=== PATIENT | female | born 1970 | race Caucasian/White ===

== ENCOUNTER → 2016-08-25 16:54 | Outpatient (CLI) | payer BC | END | disposition home or self-care (01) | LOC: D.MAMMO 08:00 → D.US 08:30 → D.MAMMO 11:30 | DX: R92.8 Other abnormal and inconclusive findings on diagnostic imaging of breast (principal) ==

== ENCOUNTER 2017-08-27 08:00 | Outpatient (CLI) | payer BC | END 2017-08-27 09:00 | disposition home or self-care (01) | LOC: D.MAMMO 08:00 | DX: R92.8 Other abnormal and inconclusive findings on diagnostic imaging of breast (principal) ==

== ENCOUNTER 2018-01-23 19:00 | Outpatient (CLI) | payer BC | END 2018-01-23 23:59 | disposition home or self-care (01) | LOC: D.MAMMO 19:00 | DX: N64.9 Disorder of breast, unspecified (principal) ==

== ENCOUNTER → 2018-02-01 10:53 | Outpatient (CLI) | payer BC | END | disposition home or self-care (01) | LOC: D.US 10:53 | DX: N63.12 Unspecified lump in the right breast, upper inner quadrant (principal) ==